=== PATIENT | male | born 1990 | race Two or more races ===

== ENCOUNTER 2022-08-07 10:56 | Emergency (ER) | payer SELFPAY ==
[~2022-08-07] VITALS: Ht 170.2 cm; Wt 67.5 kg
[2022-08-07 15:02] VITALS: BP 123/45
[2022-08-07] MEDS ORDERED: IBUP600T28 PO (15:06)
[2022-08-07] MEDS ORDERED: HYDR-4902 PO (15:09)
[2022-08-07] MEDS ORDERED: HYDROcodone-ACET 5/325MG TAB PO ONE (15:15)
== END 2022-08-07 15:54 | disposition home or self-care (01) ==
LOC: ER 10:56
DX: S92.424A Nondisplaced fracture of distal phalanx of right great toe, initial encounter for closed fracture (principal); S92.534A Nondisplaced fracture of distal phalanx of right lesser toe(s), initial encounter for closed fracture; W19.XXXA Unspecified fall, initial encounter; Y93.89 Activity, other specified; Y92.89 Other specified places as the place of occurrence of the external cause; Y99.8 Other external cause status
CPT/HCPCS: 29515; 73630